=== PATIENT | male | born 1995 | race Caucasian/White ===

== ENCOUNTER 2017-02-14 23:21 | Emergency (ER) | payer OTHER ==
[~2017-02-14] VITALS: Ht 188 cm; Wt 72.6 kg
[2017-02-14] MEDS ORDERED: AMOX-358 PO (23:42)
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
[2017-02-14 23:44] VITALS: BP 0/0
[2017-02-14] MEDS ORDERED: AUGMENTIN 875 MG TAB (AMOXICILLIN/CLAVULANATE) PO SCH (23:45)
--- OUTSIDE RECORDS SUMMARY | 2017-03-18 18:28 | XMS REPORT ---
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
--- OUTSIDE RECORDS SUMMARY | 2017-03-18 18:28 | XMS REPORT ---
Author Author MARAIM JAIMES eClinical[employer] Address Unknown Phone Unavailable Care Team Providers Care Deck Supervisor Name Role Phone MARIAM JAIMES CP Unavailable Allergies, Adverse Reactions, Alerts Substance Reaction Event Type N.K.D.A. Info Not Available Non Drug Allergy Problems Problem Type Condition Code Onset Dates Condition Status Assessment Upper respiratory tract infection, unspecified type J06.9 Active Assessment Allergic rhinitis due to pollen J30.1 Active Assessment Acute sinusitis, recurrence not specified, unspecified location J01.90 Active Medications Medication Code System Code Instructions Start Date End Date Status Dosage Ipratropium [place] [facility] [place] [address]-77 0.03 % Nasally Twice a day Dec 01, 2015 January 30, 2016 2 applications in each nostril as needed Amoxicillin [facility] [place] [address]-92 875 MG Orally Twice a day Dec 01, 2015 Dec 11, [address] [facility] [place] [address]-43 30-600 MG Orally every 12 hrs Dec 01, 2015 Dec 15, 2015 1 tablet as needed Flonase Allergy Relief [facility] [place] [address]-13 50 MCG/ACT Nasally 2 times a day 1 spray in each nostril Cefaclor [facility] [place] [address]-21 250 MG Orally every 8 hrs 1 capsule Procedures Procedure Coding System Code Date Office Visit, Est Pt., Level 3 CPT-4 75448 Dec 01, 2015 Vital Signs Date/Time: Dec 01, 2015 Temperature 98.2 F Weight 161.8 lbs Height 73 in BMI 21.34 Index Blood Pressure Diastolic 82 mmHg Blood Pressure Systolic 120 mmHg Cardiac Monitoring Heart Rate 88 bpm Results No Known Results Summary Purpose eClinicalWorks Submission
== END 2017-02-14 23:44 | disposition home or self-care (01) ==
LOC: ER 23:26
DX: S01.531A Puncture wound without foreign body of lip, initial encounter (principal); W20.8XXA Other cause of strike by thrown, projected or falling object, initial encounter; Y92.015 Private garage of single-family (private) house as the place of occurrence of the external cause; Y99.8 Other external cause status
CPT/HCPCS: 99282

== ENCOUNTER → 2017-07-10 | Outpatient (CLI) | payer OTHER ==
[~2017-07-10] MED LIST: AMOX-358 PO
--- NOTE | 2017-07-10 11:23 | Diagnostic Imaging Report ---
INDICATION: Mid/ low back pain. TECHNIQUE: Multiplanar and multisequence acquisitions were acquired through the thoracic spine without the use of gadolinium. FINDINGS: The alignment of the thoracic spine is normal. Vertebral body heights are well maintained. There is no fracture or traumatic subluxation. Visualized portions of the spinal cord are normal in signal intensity and morphology. Conus medullaris is seen at L1 and is normal in appearance. There is no focal disc extrusion or high-grade spinal stenosis. IMPRESSION: Unremarkable MRI of the thoracic spine. Dictated by: Dictated on workstation # [id number]
== END ==
LOC: RAD 09:10
PROVIDERS: ATTEND Orthopaedic Surgery Orthopaedic Surgery of the Spine
DX: M54.6 Pain in thoracic spine (principal)
CPT/HCPCS: 72146